=== PATIENT | female | born 1975 | race American Indian/Alaskan Native ===

== ENCOUNTER 2020-02-25 06:11 | Day surgery (SDC) | payer BC, OTHER ==
[~2020-02-25 06:11] MED LIST: BACTERIOSTATIC SODIUM CHLORIDE 0.9% 30 ML VIAL INFILTRATI ONE; LACTATED RINGERS 1,000 ML IV SCH; MIDAZOLAM 2 MG/2 ML INJ IV NR
[2020-02-25] MEDS ORDERED: LIDOCAINE MPF (2%) 20 MG/1 ML VIAL 5 ML ONE (07:40)
[2020-02-25] MEDS ORDERED: dexAMETHasone 20 MG/5 ML VIAL ONE (07:40)
[2020-02-25] MEDS ORDERED: PHENYLEPHRINE/NS 1,000 MCG/10 ML SYRINGE (OR USE) IV ONE (07:40)
[2020-02-25] MEDS ORDERED: GLYCOPYRROLATE 0.4 MG/2 ML INJ ONE (07:40)
[2020-02-25] MEDS ORDERED: fentaNYL 100 MCG/2 ML INJ ONE (07:40)
[2020-02-25] MEDS ORDERED: propofoL 200 MG/20 ML VIAL IV ONE (07:40)
[2020-02-25] MEDS ORDERED: ONDANSETRON 4 MG/2 ML INJ ONE (07:40)
[2020-02-25] MEDS ORDERED: ceFAZolin/STERILE WATER 2 GM/20 ML SYRINGE IV NR (07:45)
[2020-02-25] MEDS ORDERED: WATER FOR IRRIG STERILE 2000 ML IR ONE (08:20)
--- NOTE | 2020-02-25 08:34 | Anesthesia Consultation ---
Anesthesia Consult and Med Hx Date of service: 02/25/20 - Airway Anesthetic Teeth Evaluation: Good ROM Head & Neck: Adequate Mental/Hyoid Distance: Adequate Mallampati Class: Class II Intubation Access Assessment: Probably Good - Pulmonary Exam CTA: Yes - Cardiac Exam Cardiac Exam: RRR - Pre-Operative Health Status ASA Pre-Surgery Classification: ASA1 Proposed Anesthetic Plan: General - Pulmonary Hx Smoking: No Hx Respiratory Symptoms: No Hx Sleep Apnea: No (MARKUS PRE SCREEN LOW RISK) - Cardiovascular System Hx Hypertension: No - Central Nervous System CVA: No - Gastrointestinal Hx Gastroesophageal Reflux Disease: No - Endocrine Hx Renal Disease: Yes (hydronephrosis) Hx Liver Disease: No Hx Insulin Dependent Diabetes: No Hx Non-Insulin Dependent Diabetes: No Hx Thyroid Disease: No - Other Systems Hx Obesity: No - Additional Comments Anesthesia Medical History Comments: No hx anesthetic complications.
--- NOTE | 2020-02-25 08:34 | Anesthesia Day of Surgery ---
Anesthesia Day of Surgery - Day of Surgery Patient Examined: Yes Patient H&P Reviewed: Yes Patient is NPO: Yes
--- NOTE | 2020-02-25 08:41 | Post Operative Note ---
Date of procedure: 02/25/20 Pre-op diagnosis: r hydro Post-op diagnosis: same Findings: mass and kinking Procedure: cysto rpgs stent Anesthesia: GETA Surgeon: CRISTIANE GOSS Estimated blood loss: none Pathology: none Condition: stable Disposition: PACU
--- NOTE | 2020-02-25 08:42 | Discharge Summary ---
Short Stay Discharge Plan Activity: other (no straining ) Weight Bearing Status: Full Weight Bearing Diet: regular Special Instructions: other (inc fluids ) Durable Medical Equipment Needed Upon Discharge: other (has j stent need f/u) Follow up with: MARTHA LEONARDO MD [Primary Care Provider] - 7 Days CRISTIANE GOSS MD [Staff Physician] - 14 Days
[2020-02-25] MEDS ORDERED: MEPERIDINE 25 MG/1 ML INJ ONE (08:48)
[2020-02-25] MEDS ORDERED: ONDANSETRON 4 MG/2 ML INJ IV PRN (08:49)
[2020-02-25] MEDS ORDERED: MEPERIDINE 25 MG/1 ML INJ IV PRN (08:49)
[2020-02-25] MEDS: fentaNYL 100 MCG/2 ML INJ IV PRN ×2 (09:02→09:12)
[2020-02-25 09:31] VITALS: BP 129/70
--- NOTE | 2020-02-25 09:47 | Operative Report ---
PREOPERATIVE DIAGNOSIS: Right hydronephrosis. POSTOPERATIVE DIAGNOSES: Right hydronephrosis with evidence of a mass on the right pelvis, displacing the lower ureter medially with kinking at the level of the great vessels bifurcation. PROCEDURE: Cystoscopy, bilateral retrogrades, right double-J stent. SURGEON: Cecil Ayala MD ANESTHESIA: General. FINDINGS: This is a woman with endometriosis, had a procedure. She has evidence of right hydronephrosis. All implications and risks were discussed. DESCRIPTION OF PROCEDURE: The patient was brought to the operating room and placed on the operating table. Following induction of anesthesia, placed in lithotomy position, prepped and draped in usual sterile fashion. Cystourethroscopy showed evidence of extrinsic pelvic mass. There were no epithelial lesions. No biopsies were required. Retrograde showed minimal amount of ureterocele, nothing significant clinically, but there was kinking and deviation of the right lower ureter medially. There was kinking at the bifurcation of the iliacs. There was some mild hydronephrosis. A wire coiled in the kidney and we left a double-J stent. Should she need another procedure that would be helpful for that as well. The patient tolerated the procedure well. Brought to recovery in stable condition. PLAN: Will be to leave the stent for 6-8 weeks to see if she needs any [employer] procedure. If not, we will take it out and do a nuclear renal scan to make sure that there is no significant obstruction. JOB# [id number] [facility]
--- NOTE | 2020-02-25 09:53 | Post Anesthesia Evaluation ---
- Post Anesthesia Evaluation Patient Participated: Yes Airway Patent: Yes Stable Respiratory Function: Yes Nausea/Vomiting: No Temp > 96.8F: Yes Pain Manageable: Yes Adequeate Hydration: Yes Anesthesia Complications: No
--- NOTE | 2020-02-25 15:50 | Fluoroscopy Report ---
INTRAOPERATIVE FLUOROSCOPY: ABDOMEN INDICATION: Hydronephrosis. Guidance for retrograde urography with right stent placement. TECHNIQUE: Intraoperative spot images were obtained during the procedure. FINDINGS: No hydroureteronephrosis or significant filling defects are identified along the renal collecting sys tems or ureters bilaterally Limited spot fluoroscopic imaging. A right ureteral stent is in good posi tion. Please see the procedural report for further details. Fluoroscopy Time: 55 seconds. Fluoroscopy Images: 6. Signer Name: Jonathan Singh MD Signed: 02/25/2020 3:45 PM Workstation Name: [id number]
--- NOTE | 2020-02-26 03:04 | Consultation ---
PREOPERATIVE DIAGNOSES: Urinary retention, renal failure, poorly positioned Gregory catheter. POSTOPERATIVE DIAGNOSES: Urinary retention, renal failure, poorly positioned Gregory catheter. CONSULT FINDINGS: This is a gentleman with mild mental status changes and chronic renal failure, who presented with urinary retention. The catheter was removed and he was unable to void. The catheter was placed. It is clearly in the urethra with some bloody discharge. DESCRIPTION OF PROCEDURE: The patient had to be partially restrained or held with accompanying nurse and catheter was removed. There was red blood coming from the urethra after the balloon was deflated. At this point, a wire eventually coiled in the bladder and a [address] [place] was placed and diuresis was obtained of clear urine from the bladder. The patient tolerated the procedure well. PLAN: Will be discharged with Gregory, needs to be seen in the office for evaluation of urinary retention. JOB# [id number] [facility]
== END 2020-02-25 10:10 | disposition home or self-care (01) ==
LOC: OR 06:11
PROVIDERS: ATTEND Urology
DX: N13.30 Unspecified hydronephrosis (principal); K21.9 Gastro-esophageal reflux disease without esophagitis; Z90.721 Acquired absence of ovaries, unilateral; Z79.899 Other long term (current) drug therapy; Z72.89 Other problems related to lifestyle; Z98.890 Other specified postprocedural states; Z80.0 Family history of malignant neoplasm of digestive organs; Z88.8 Allergy status to other drugs, medicaments and biological substances
CPT/HCPCS: 52332; 74420; A4217; C1758; C1769; C2617; J1100; J2175; J2250; J2370; J2405; J2704; J3010; J7120; Q9967